=== PATIENT | male | born 1945 | race Caucasian/White ===

== ENCOUNTER 2017-12-09 15:45 | Emergency (ER) | payer MEDICARE, OTHER ==
[2017-12-09] MEDS ORDERED: Bacitracin Oint 1 GM U/D Packet TOP ONE (16:29)
[2017-12-09] MEDS ORDERED: Diphtheria,Pertussis(Acell),Tetanus Vaccine 0.5 ML SDV IM ONE (16:29)
[2017-12-09] MEDS ORDERED: Lidocaine 1% with EPINEPHrine 1:100,000 50 ML MDV SUBCUT STA (16:31)
--- NOTE | 2017-12-09 17:16 | EDM.PDOC ---
<Berta Sparks N - Last Filed: 12/09/17 17:10> ED HPI GENERAL MEDICAL PROBLEM - General Chief Complaint: Laceration Stated Complaint: CUT ARM Time Seen by Provider: 12/09/17 16:31 - History of Present Illness INITIAL COMMENTS - FREE TEXT/NARRATIVE: Leon is a 72-year-old male that presents to the ER with complaints of a 7- cm laceration on the lateral aspect of his left forearm. Reports he was reaching up to take a piece of aluminum off the wall when a sheet of tin fell onto his arm. Reports full ROM of affected extremity. CMS intact. No evidence of neurovascular compromise. He is uncertain regarding last tetanus shot. Left Arm Pain Score (Numeric/FACES): 4 - Related Data Allergies Allergy/AdvReac Type Severity Reaction Status Date / Time red dye Allergy Airway Verified 12/09/17 16:13 Tightness venom-honey bee Allergy Swelling Verified 12/22/13 11:50 [bee venom (honey bee)] fabric softner Allergy Airway Uncoded 12/09/17 16:13 Tightness Home Meds: Home Meds *Blood Pressure Pill 12/09/17 [History] *Lasix 12/09/17 [History] *Lisinopril 12/09/17 [History] *Metoprolol 12/09/17 [History] *Omeprazole 12/09/17 [History] Aspirin [Adult Aspirin] 81 mg PO 12/09/17 [History] Past Medical History HEENT History: Reports: Allergic Rhinitis, Impaired Vision Cardiovascular History: Reports: Hypertension Gastrointestinal History: Reports: GERD Genitourinary History: Reports: Renal Calculus Musculoskeletal History: Reports: Arthritis Neurological History: Reports: Vertigo Dermatologic History: Reports: Psoriasis - Infectious Disease History Infectious Disease History: Reports: Chicken Pox, Measles, Mumps, Shingles - Past Surgical History HEENT Surgical History: Reports: Detached Retina GI Surgical History: Reports: Small Bowel Social & Family History - Tobacco Use Smoking Status *Q: Never Smoker - Caffeine Use Caffeine Use: Reports: Soda - Alcohol Use Days Per Week of Alcohol Use: 7 Number of Drinks Per Day: 2 Total Drinks Per Week: 14 - Recreational Drug Use Recreational Drug Use: No ED ROS GENERAL - Review of Systems Constitutional: Reports: No Symptoms HEENT: Reports: No Symptoms Respiratory: Reports: No Symptoms Cardiovascular: Reports: No Symptoms Endocrine: Reports: No Symptoms GI/Abdominal: Reports: No Symptoms : Reports: No Symptoms Musculoskeletal: Reports: Arm Pain Skin: Reports: Wound (7-cm laceration) Neurological: Reports: No Symptoms Psychiatric: Reports: No Symptoms Hematologic/Lymphatic: Reports: No Symptoms Immunologic: Reports: No Symptoms ED EXAM, SKIN/RASH Exam Limited By: No Limitations General Appearance: Alert, No Apparent Distress Respiratory/Chest: No Respiratory Distress Extremities: Arm Pain Skin: Wound/Incision (7-cm laceration with moderate bleeding on left forearm) ED SKIN PROCEDURES - Laceration/Wound Repair Left Medial Distal Arm Lac/Wound length In cm: 7 Appearance: Muscle Distal NVT: Neuro & Vascular Intact, No Tendon Injury Anesthetic Type: Local Local Anesthesia - Lidocaine (Xylocaine): 1% with EPI Local Anesthetic Volume: Other (8 cc) Skin Prep: Chlorhexidine (Hibiciens), Saline, Sterile Drape Exploration/Debridement/Repair: Wound Explored, Explored to Base, No Foreign Material Found Closed with: Sutures Suture Size: 3-0 Suture Type: Running Suture Size: 4-0 # of Sutures: 5 Repaired with: Vicryl Sterile Dressing Applied: Nurse Tetanus Status Addressed: Yes Complications: No Course - Vital Signs Last Recorded V/S: Last Vital Signs Temp 97.9 F 12/09/17 16:21 Pulse 82 12/09/17 16:21 Resp 16 12/09/17 16:21 BP 137/74 12/09/17 16:21 Pulse Ox 95 12/09/17 16:21 - Orders/Labs/Meds Orders: Active Orders 24 hr Category Date Time Status Vaccines to be Administered [RC] PER UNIT ROUTINE Care 12/09/17 16:32 Active Meds: Medications Discontinued Medications Generic Name Dose Route Start Last Admin Trade Name Ana PRN Reason Stop Dose Admin Bacitracin 1 dose 12/09/17 16:29 12/09/17 16:38 Bacitracin Oint 1 Gm TOP 12/09/17 16:30 1 dose ONETIME ONE Administration Diphtheria/Tetanus/Acell Pertussis 0.5 ml 12/09/17 16:29 12/09/17 16:38 Adacel IM 12/09/17 16:30 0.5 ml .ONCE ONE Administration Lidocaine/Epinephrine 20 ml 12/09/17 16:31 12/09/17 16:37 Xylocaine 1% With Epinephrine 1:100,000 SUBCUT 12/09/17 16:32 20 ml NOW STA Administration Departure - Departure Disposition: Home, Self-Care 01 Clinical Impression: home. Who will see a Laceration of left forearm Qualifiers: Encounter type: initial encounter Qualified Code(s): S51.812A - Laceration without foreign body of left forearm, initial encounter - Discharge Information Referrals: PCP,None [Primary Care Provider] - Forms: ED Department Discharge Additional Instructions: follow wound care instruction sheet, suture removal in 10 days, follow up with primary care or return to the emergency department for suture removal . Resident/PA IDX Provider #_ * Wiliam Hernandez MD was personally available for consultation in the ED. I have reviewed the chart and agree with the documentation as recorded by the AGRICULTURAL EXTENSION AGENT, including the assessment, treatment plan and disposition. * Wiliam Hernandez MD personally saw and examined the patient. I have reviewed and agree with the AGRICULTURAL EXTENSION AGENT's findings. - Problem List Review Problem List Initiated/Reviewed/Updated: Yes - Assessment/Plan Plan: Assessment: Laceration of the left forearm Plan: Follow wound care instruction sheet. Suture removal in 10 days. <Wiliam Jeong - Last Filed: 12/09/17 17:21> ED ROS GENERAL - Review of Systems Review Of Systems: See Below ED EXAM, SKIN/RASH Exam: See Below Text/Narrative:: Examination left arm could move all digits without difficulty, radial pulse is + 2 sensation is intact Departure - Departure Time of Disposition: 17:20 (And) Condition: Good
== END 2017-12-09 17:33 | disposition home or self-care (01) ==
LOC: JP.ED 15:45
DX: S51.812A Laceration without foreign body of left forearm, initial encounter (principal); I10 Essential (primary) hypertension; Z91.09 Other allergy status, other than to drugs and biological substances; Z23 Encounter for immunization; Z91.030 Bee allergy status; W20.8XXA Other cause of strike by thrown, projected or falling object, initial encounter
CPT/HCPCS: 12002; 90471; 90715; 99283-25

== ENCOUNTER 2025-01-18 22:03 | Inpatient (IN) | payer MEDICARE, OTHER ==
[2025-01-18] MEDS ORDERED: Naloxone 0.4 MG/ML SDV IVPUSH PRN (22:24)
[2025-01-18 22:33] LABS: BASOPHILS PERCENT AUTO 0.1 % (0.1-1.3); EOSINOPHILS PERCENT AUTO 0.1 % (0.0-5.4); IMMATURE GRAN ABSOLUTE AUTO 0.10 K/uL (0.00-0.23); IMMATURE GRAN PERCENT AUTO 0.5 % (0.0-0.7); LYMPHOCYTES ABSOLUTE AUTO 1.03 K/uL (0.8-3.3); LYMPHOCYTES PERCENT AUTO 5.5 % (11.4-47.7); MONOCYTES ABSOLUTE AUTO 0.26 K/uL (0.20-0.90); MONOCYTES PERCENT AUTO 1.4 % (3.3-12.6); NEUTROPHILS ABSOLUTE AUTO 17.16 K/uL (1.0-7.6); NEUTROPHILS PERCENT AUTO 92.4 % (40.0-78.1); PLATELET COUNT,PLT 166 K/uL (130-375); RED BLOOD CELL COUNT 3.83 M/uL (4.14-5.76); WHITE BLOOD CELL COUNT,WBC 18.6 K/uL (3.2-11.0)
[2025-01-18] MEDS: Ondansetron 4 MG/2 ML SDV IVPUSH ONE (22:34)
[2025-01-18 22:35] LABS: BASOPHILS ABSOLUTE AUTO 0.02 K/uL (0.00-0.10); EOSINOPHILS ABSOLUTE AUTO 0.02 K/uL (0.00-0.40)
[2025-01-18 22:54] LABS: A/G RATIO 1.0 (1.2-2.2); ALANINE AMINOTRANSFERASE,ALT 64 U/L (12-78); ASPARTATE AMNIOTRANSFERASE,AST 118 U/L (15-37); BILIRUBIN TOTAL 1.5 mg/dL (0.2-1.0); BLOOD UREA NITROGEN,BUN 19 mg/dL (7-18); CARBON DIOXIDE,CO2 27 mmol/L (21-32); CHLORIDE,CL 101 mmol/L (100-108); CREATININE 1.4 mg/dL (0.8-1.3); EST CRCL DRUG DOSING (CG) 40.00 mL/min; ESTIMATED GFR 51 mL/min (>60); GLUCOSE RANDOM 184 mg/dL (74-106); POTASSIUM,K 4.7 mmol/L (3.6-5.2); PROTEIN TOTAL,TP 8.0 g/dL (6.4-8.2); SODIUM,NA 139 mmol/L (140-148)
[2025-01-18] MEDS: Iopamidol 612 MG/ML 100 ML Bottle IV SCH (22:54)
[2025-01-19 00:54] LABS: APPEARANCE,URINE CLEAR (CLEAR); GLUCOSE,URINE NEGATIVE (NEGATIVE); OCCULT BLOOD,URINE NEGATIVE (NEGATIVE)
[2025-01-19 00:55] LABS: SQUAMOUS EPITHELIAL CELLS,UR NOT SEEN /HPF; UROTHELIAL CELLS,URINE NOT SEEN /HPF
[2025-01-19 01:56] LABS: LACTIC ACID 2.7 mmol/L (0.4-2.0)
[2025-01-19] MEDS ORDERED: Ondansetron 4 MG/2 ML SDV IV PRN (02:04)
[2025-01-19] MEDS ORDERED: Naloxone 0.4 MG/ML SDV IVPUSH PRN (02:09)
[2025-01-19 05:46] LABS: PLATELET COUNT,PLT 174 K/uL (130-375); RED BLOOD CELL COUNT 3.24 M/uL (4.14-5.76); WHITE BLOOD CELL COUNT,WBC 23.9 K/uL (3.2-11.0)
[2025-01-19 06:07] LABS: BAND ABSOLUTE MAN 2.39 K/uL; BAND PERCENT MAN 10 % (5-11); LYMPHOCYTES ABSOLUTE MAN 0.48 K/uL (0.8-3.3); LYMPHOCYTES PERCENT MAN 2 % (24-44); MONOCYTES ABSOLUTE MAN 0.48 K/uL (0.20-0.90); MONOCYTES PERCENT MAN 2 % (2-6); NEUTROPHILS ABSOLUTE MAN 20.55 K/uL (1.0-7.6); SEG NEUTROPHILS PERCENT MAN 86 % (36-66)
[2025-01-19 06:20] LABS: A/G RATIO 0.9 (1.2-2.2); ALANINE AMINOTRANSFERASE,ALT 104 U/L (12-78); ASPARTATE AMNIOTRANSFERASE,AST 145 U/L (15-37); BILIRUBIN TOTAL 2.6 mg/dL (0.2-1.0); BLOOD UREA NITROGEN,BUN 18 mg/dL (7-18); CARBON DIOXIDE,CO2 27 mmol/L (21-32); CHLORIDE,CL 105 mmol/L (100-108); CREATININE 1.4 mg/dL (0.8-1.3); EST CRCL DRUG DOSING (CG) 38.61 mL/min; ESTIMATED GFR 51 mL/min (>60); GLUCOSE RANDOM 178 mg/dL (74-106); POTASSIUM,K 4.0 mmol/L (3.6-5.2); PROTEIN TOTAL,TP 6.6 g/dL (6.4-8.2); SODIUM,NA 141 mmol/L (140-148)
[2025-01-19] MEDS: Potassium Chloride 10 MEQ Cap.ER PO SCH (08:49)
[2025-01-19] MEDS ORDERED: METOPROLOL PO SCH (09:00)
[2025-01-19] MEDS: Piperacillin/Tazobactam/Dext 4.5 GM in Premix Bag 1 BAG IV SCH (11:02)
== END 2025-01-19 14:20 | DRG 446 ==
LOC: JP.ED 22:03 → JP.MS 01-19 02:04
PROVIDERS: ADMIT Family Medicine; ATTEND Family Medicine
DX: A41.9 Sepsis, unspecified organism (principal); K82.9 Disease of gallbladder, unspecified; K81.0 Acute cholecystitis; J30.9 Allergic rhinitis, unspecified; H54.7 Unspecified visual loss; Z91.041 Radiographic dye allergy status; Z91.030 Bee allergy status; I10 Essential (primary) hypertension; K21.9 Gastro-esophageal reflux disease without esophagitis; N20.0 Calculus of kidney; M19.90 Unspecified osteoarthritis, unspecified site; Z98.890 Other specified postprocedural states; Z79.82 Long term (current) use of aspirin; Z79.899 Other long term (current) drug therapy; Z88.8 Allergy status to other drugs, medicaments and biological substances
CPT/HCPCS: 36415 ×2; 71045 ×2; 74177; 76705; 80053; 81001; 82150; 83605 ×2; 85025; 86140; 87040 ×2; 87077; 87186; A9270; J2405; J2543; J7030 ×5; Q9967; U0002; 99239; 99285; J1171